=== PATIENT | female | born 1950 | race Caucasian/White ===

== ENCOUNTER → 2017-05-06 | Outpatient (CLI) | payer BC ==
[~2017-05-06] MED LIST: BLAC1TAB; CALCTAB5 PO; CHOL100010 PO; CHONCAP; CYAN100T PO; ECHI80CA; FLAX1CAP11; MAGN1TAB21; MULTTAB58 PO; [UNRECOGNIZED DRUG - OTHER]
--- NOTE | 2017-05-06 13:21 | DIAGNOSTIC IMAGING REPORT ---
RIGHT FOOT MIN 3 VIEWS CLINICAL HISTORY: Right foot pain COMPARISON: None. DISCUSSION: There is an oblique fracture involving the fifth metatarsal the junction of the middle distal one third. 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 The bones are mildly osteopenic. There is a hallux valgus deformity. Degenerative changes are present at the level the first metatarsal phalangeal joint. There is a plantar calcaneal spur. No acute fractures or dislocations are visualized. 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 Electronically signed by: Timothy Currie M.D. 05/06/2017 1:19 PM Dictated Date/Time: 05/06/2017 1:18 PM
== END | disposition home or self-care (01) ==
LOC: C.RDSM 12:55
PROVIDERS: ATTEND Physician Assistant
DX: S92.354A Nondisplaced fracture of fifth metatarsal bone, right foot, initial encounter for closed fracture (principal); X58.XXXA Exposure to other specified factors, initial encounter

== ENCOUNTER → 2017-08-12 | Outpatient (CLI) | payer BC ==
--- NOTE | 2017-08-12 14:34 | MAMMOGRAPHY REPORT ---
BILATERAL DIGITAL SCREENING MAMMOGRAM WITH CAD: 08/12/2017 CLINICAL HISTORY: Routine screening. Patient has no complaints. TECHNIQUE: Current study was also evaluated with a Computer Aided Detection (CAD) system. Bilateral CC and MLO views were obtained. COMPARISON: Comparison is made to exams dated: 08/10/2016 mammogram, 08/05/2015 mammogram, 07/27/2014 mammogram, 06/16/2013 mammogram, 06/08/2012 mammogram, and 05/29/2011 mammogram - [facility]. BREAST COMPOSITION: The tissue of both breasts is extremely dense, which lowers the sensitivity of m ammography. FINDINGS: No suspicious masses, calcifications, or areas of architectural distortion are noted in ei ther breast. There has been no significant interval change compared to prior exams. Scattered bilater al benign-appearing calcifications are not significantly changed. IMPRESSION: ACR BI-RADS CATEGORY 2: BENIGN There is no mammographic evidence of malignancy. A 1 year screening mammogram is recommended. The pa tient will receive written notification of the results. Approximately 10% of breast cancers are not detected with mammography. A negative mammographic report should not delay biopsy if a clinically suggestive mass is present. Juana Richards M.D. /:08/12/2017 07:41:34 Resident Inspector: Kylah AVENDAÑO(Suzanne)(M), [facility] letter sent: Normal 1/2 BI-RADS Code: ACR BI-RADS Category 2: Benign
== END | disposition home or self-care (01) ==
LOC: C.MAMM 07:10
PROVIDERS: ATTEND Family Medicine
DX: Z12.31 Encounter for screening mammogram for malignant neoplasm of breast (principal)

== ENCOUNTER 2023-08-19 03:55 | Inpatient (IN) ==
--- NOTE | 2023-08-19 04:42 | Emergency Department Note ---
Impression & Plan Abscess of sigmoid colon due to diverticulitis Admit to the [facility] with consultation to surgery ED Provider Note NAME: EDER KEENAN AGE: 72 SEX: Female INFORMANT: Patient ED PROVIDER(S): Lola Pham DO CHIEF COMPLAINT: Lower abdominal pain and nausea PLAN: Disposition: Admit to the [facility] MEDICAL DECISION MAKING: This is a 72-year-old female patient who presents to the emergency department with severe lower abdominal pain and nausea. The patient has a history of diverticulitis and believes that this may be causing her symptoms. She also describes urinary hesitancy. Urinalysis shows 1+ ketones but no obvious signs of urinary tract infection. Patient does have moderate leukocytosis with a white blood cell count of 14,000. On physical exam she appears mildly dehydrated. Glucose is 130. There is no evidence of ANDREA. CT scan shows moderate sigmoid diverticulitis with an intramural abscess but nothing that is drainable. Patient was originally treated with oral Tylenol for pain but then given IV Dilaudid and IV Zofran. She was treated with IV Zosyn. I discussed the case initially with the surgical PA who agreed that they would consult on this case and the patient will be admitted to internal medicine hospitalist se abarca. Care/management discussed with: The patient and her along with general surgery and the [facility] group. Triage Nursing notes: Reviewed and agree with them. Vital Signs: reviewed and unremarkable Additional History obtained from: The patient's is at the bedside Differential Diagnosis: Constipation, UTI, diverticulitis, colitis, diverticular abscess Diagnostics, independently interpreted by me: Cardiac Monitoring: Normal sinus rhythm at 93 Imaging studies: CT scan of the abdomen/pelvis: As per radiology HPI: 72 year old Female arrives for evaluation of lower abdominal pain and nausea. Patient developed lower abdominal pain and nausea that radiates through to her back since yesterday. She states that her stools are coming out looking like mickey. She has had an episode like this in the past that was diverticulitis. She thought this might be occurring so she started to take clear liquids only. She became more concerned tonight because she could not urinate and actually had to bear down to pass her urine. PAST MEDICAL HISTORY: See Below, A-fib SOCIAL HISTORY: The patient does not smoke; she lives with her , HOME MEDICATIONS: See list ALLERGIES: See list VITALS: See Below PHYSICAL EXAMINATION: HEENT: Head - normocephalic and atraumatic. Pupils are equal, round, and reactive to light. Extraocular eye muscles are intact, and sclera are anicteri c. Nose - moist nasal mucosa without discharge. Mouth - moist buccal mucosa. Oropharynx is nonerythematous and there is no tonsillar exudate or edema noted. Neck: Supple; no cervical lymphadenopathy Heart: Regular rate and rhythm. There is a normal S1 and S2 with no murmurs, clicks, or gallops appreciated. Lungs: Clear to auscultation bilaterally with no wheezes, rales, or rhonchi. Abdomen: Soft, moderate tenderness to palpation in the suprapubic region and left lower quadrant. There are no palpable pulsatile masses or hepatosplenomegaly. There is no guarding, rigidity, or rebound noted. Extremities: No evidence of cyanosis, clubbing, or edema. There are easily palpable peripheral pulses. Skin: warm and dry with good turgor and no rashes. ED treatment: IV lock, oral Tylenol, IV normal saline drip, IV Dilaudid, IV Zofran, IV Zosyn Emergency department course: The patient was evaluated in room C3. A complete history and physical was performed. An IV lock was initiated and labs were drawn as above. A urine specimen was obtained. Patient went for CT scan of the abdomen/pelvis. Patient was given oral Tylenol for pain initially. She was started on a normal saline drip for signs of dehydration. She was then agreeable to something more for pain and was given IV Dilaudid and IV Zofran. CT scan showed evidence of sigmoid diverticulitis with intramural abscess. She was then started on IV Zosyn. I discussed the case with general surgery and the [facility] Hospitalist. Past Med/Surg History Medical History Cervical dystonia Diverticular disease PAF (paroxysmal atrial fibrillation) Sensorineural hearing loss of both ears Squamous cell skin cancer, face Surgical History History of carpal tunnel release Right S/P cataract extraction Family History Mother Hearing loss Skin cancer Breast cancer Sister Hearing loss Skin cancer Father Hypertension Stroke age 57 - CVA was traumatic from a blow to the head. 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 How many Children do You have: 1 Other Information That Helps Us Care for You: No Feels Safe at Home: Yes Safety Concerns: Feels Safe At This Time Allergies Allergies Allergy/AdvReac Type Severity Reaction Status Date / Time grass pollen Allergy Verified 06/18/21 15:07 No Known Drug Allergies Allergy Verified 06/18/21 15:07 Home Meds Home Medications Medication Instructions Recorded Confirmed multivitamin (Daily Multi-Vitamin 1 tab PO DAILY 06/02/21 08/19/23 tablet) apixaban 5 mg tablet (Eliquis) 5 mg PO BID 08/19/23 08/19/23 flecainide 50 mg tablet 50 mg PO BID 08/19/23 08/19/23 metoprolol succinate 25 mg 12.5 mg PO DAILY 08/19/23 08/19/23 tablet,extended release 24 hr Results & Data (ED) Vital Signs Vital Signs - 24 hr 08/19/23 03:56 08/19/23 04:45 08/19/23 04:30 Temperature 36.5 C Temperature Source Oral Pulse Rate 93 H 84 Pulse Rate [Left Finger] Pulse Rhythm Regular Pulse Strength Normal Respiratory Rate 18 22 Respiratory Effort / Characteristics Non-Labored Spontaneous Respiratory Depth Normal Respiratory Pattern Regular Blood Pressure 112/76 121/67 Blood Pressure [Left Arm] Blood Pressure Mean 88 85 Blood Pressure Mean [Left Arm] Blood Pressure Position Sitting Pulse Oximetry 96 97 97 Oxygen Delivery Method Room Air Room Air Sepsis Recent Fever Within 48 Hours No Sepsis New/Unexplained Change in Mental Status No Sepsis Action Taken by Nursing No Action Required 08/19/23 04:55 08/19/23 05:00 08/19/23 06:00 Temperature Temperature Source Pulse Rate 74 72 72 Pulse Rate [Left Finger] Pulse Rhythm Pulse Strength Respiratory Rate 18 16 Respiratory Effort / Characteristics Respiratory Depth Respiratory Pattern Blood Pressure 106/66 106/73 Blood Pressure [Left Arm] Blood Pressure Mean 79 84 Blood Pressure Mean [Left Arm] Blood Pressure Position Pulse Oximetry 94 95 Oxygen Delivery Method Sepsis Recent Fever Within 48 Hours Sepsis New/Unexplained Change in Mental Status Sepsis Action Taken by Nursing 08/19/23 07:00 Temperature Temperature Source Pulse Rate Pulse Rate [Left Finger] 81 Pulse Rhythm Pulse Strength Respiratory Rate 24 Respiratory Effort / Characteristics Respiratory Depth Respiratory Pattern Blood Pressure Blood Pressure [Left Arm] 107/68 Blood Pressure Mean Blood Pressure Mean [Left Arm] 81 Blood Pressure Position Pulse Oximetry 91 Oxygen Delivery Method Sepsis Recent Fever Within 48 Hours Sepsis New/Unexplained Change in Mental Status Sepsis Action Taken by Nursing Laboratory Data 08/19/23 04:25 08/19/23 04:25 Lab Results 08/19/23 08/19/23 08/19/23 Range/Units 04:25 04:25 04:25 WBC 14.00 H (4.8-10.8) K/ul RBC 3.72 L (4.20-5.40) M/uL Hgb 12.0 (12.0-16.0) g/dl Hct 35.0 L (37.0-47.0) % MCV 94.1 (80.0-100.0) fL MCH 32.3 (25.0-34.0) pg MCHC 34.3 (32.0-36.0) g/dL RDW Std Deviation 43.8 (36.4-46.3) fL RDW Coeff of [place] 12.7 (11.5-14.5) % Plt Count 304 (130-400) K/uL MPV 9.0 L (9.4-12.4) fL Immature Gran % (Auto) 0.3 % Neut % (Auto) 83.1 % Lymph % (Auto) 7.8 % [place] % (Auto) 8.6 % Eos % (Auto) 0.1 % Baso % (Auto) 0.1 % Neut # (Auto) 11.63 H (1.40-6.50) K/uL Lymph # (Auto) 1.09 L (1.20-3.40) K/uL [place] # (Auto) 1.21 H (0.11-0.59) K/uL Eos # (Auto) 0.01 (0.00-0.50) K/uL Baso # (Auto) 0.02 (0.00-0.20) K/uL Immature Gran # (Auto) 0.04 (0.01-0.20) K/uL Sodium 137 (136-145) mmol/L Potassium 3.9 (3.5-5.1) mmol/L Chloride 105 (98-107) mmol/L Carbon Dioxide 25 (21-32) mmol/L Anion Gap 7 (3-11) BUN 19 (6-23) mg/dl Creatinine 0.73 (0.6-1.2) mg/dl Est Cr Clr Drug Dosing 60.3 ml/min Est GFR ( Amer) 96.7 ml/min Est GFR (Non-Af Amer) 83.4 ml/min BUN/Creatinine Ratio 26.0 H (10-20) Glucose 130 H (70-99(Fasting)) mg/dl Calcium 8.7 (8.6-10.3) mg/dl Magnesium 2.0 (1.7-2.4) mg/dl Total Bilirubin 0.6 (0.2-1.0) mg/dl AST 23 (13-39) U/L ALT 9 (7-52) U/L Alkaline Phosphatase 83 (34-104) U/L Total Protein 6.7 (6.0-8.3) gm/dl Albumin 4.0 (3.4-5.0) gm/dl Globulin 2.7 (2.5-4.0) gm/dl Albumin/Globulin Ratio 1.5 (0.9-2) Lipase 17 (11-82) U/L Urine Color Dark Yellow Urine Appearance Clear (Clear) Urine pH 7.5 (4.5-7.5) Ur Specific [place] 1.024 (1.000-1.030) Urine Protein Trace H (Negative) Urine Glucose (UA) Negative (Negative) Urine Ketones 1+ H (Negative) Urine Blood Negative (Negative) Urine Nitrite Negative (Negative) Urine Bilirubin Negative (Negative) Urine Urobilinogen Negative (Negative) Ur Leukocyte Esterase Trace H (Negative) Urine WBC (Auto) 1-5 (0-5) /hpf Urine RBC (Auto) 5-10 H (0-4) /hpf U Hyaline Cast (Auto) 1-5 (0-5) /lpf U Epithel Cells (Auto) 10-20 H (0-5) /lpf Urine Bacteria (Auto) Negative (Negative) Administered Medications Flecainide Acetate (Flecainide Acetate 100 Mg Tablet) 50 mg PO BID GUIDO Stop: 09/18/23 12:42 Last Admin: 08/19/23 13:46 Dose: 50 mg Documented By: ADOLFO Potassium Chloride/Dextrose/Sod Cl (D5nss + 20meq Kcl) 20 meq in 1,000 mls @ 100 mls/hr IV .Q10H GUIDO; Protocol Stop: 09/18/23 12:44 Last Admin: 08/19/23 13:45 Dose: 100 mls/hr Documented By: ADOLFO Heparin Sodium/Dextrose (Heparin Sodium/Dextrose) 25,000 units in 500 mls @ 19 mls/hr IV .Q24H GUIDO; Protocol Stop: 09/18/23 12:42 Last Admin: 08/19/23 15:22 Dose: Not Given Documented By: ARMIDA Famotidine 20 mg/ Syringe 5 mls @ 2.5 mls/min IV Q12 GUIDO Stop: 09/18/23 12:59 Last Admin: 08/19/23 13:45 Dose: 2.5 mls/min Documented By: ADOLFO Piperacillin Sod/Tazobactam (Sod 4.5 gm/ Dextrose) 100 mls @ 25 mls/hr IV Q8H GUIDO; Protocol Stop: 08/29/23 13:29 Last Admin: 08/19/23 14:33 Dose: 25 mls/hr Documented By: ADOLFO Discontinued Medications Acetaminophen (Acetaminophen 500 Mg Tab) 1,000 mg PO NOW STA Stop: 08/19/23 06:53 Last Admin: 08/19/23 06:55 Dose: 1,000 mg Documented By: TAWANA Heparin Sodium (Porcine) (Heparin Sod (Porcine) 1000 Unit/Ml) Confirm Administered Dose 1,000 units .ROUTE .STK-MED ONE Stop: 08/19/23 13:16 Last Admin: 08/19/23 13:28 Dose: Not Given Documented By: ADOLFO Heparin Sodium/Dextrose (Heparin 14378 Unit/500 Ml D5w) Confirm Administered Dose 25,000 units IV .STK-MED ONE Stop: 08/19/23 13:16 Last Admin: 08/19/23 14:38 Dose: 950 units Documented By: ADOLFO Co-signed By: NIK Hydromorphone HCl (Hydromorphone Inj 0.5 Mg/0.5 Ml Syr) 0.5 mg IV NOW STA Stop: 08/19/23 07:11 Last Admin: 08/19/23 07:16 Dose: 0.5 mg Documented By: ADOLFO Piperacillin Sod/Tazobactam Sod (Zosyn) 4.5 gm in 100 mls @ 200 mls/hr IV NOW ONE Stop: 08/19/23 07:34 Last Infusion: 08/19/23 07:51 Dose: 0 mls/hr Documented By: Admin: 08/19/23 07:21 Dose: 200 mls/hr Documented By: ADOLFO Sodium Chloride (Nss) 500 mls @ 125 mls/hr IV .Q4H GUIDO Stop: 09/18/23 07:14 Last Admin: 08/19/23 12:18 Dose: Not Given Documented By: Infusion: 08/19/23 11:14 Dose: 0 mls/hr Documented By: Admin: 08/19/23 07:15 Dose: 125 mls/hr Documented By: ADOLFO Lactated Ringer's (Lr) 500 mls @ 999 mls/hr IV .Q31M ONE Stop: 08/19/23 08:54 Last Infusion: 08/19/23 09:10 Dose: 0 mls/hr Documented By: Admin: 08/19/23 08:39 Dose: 999 mls/hr Documented By: ADOLFO Ioversol (Optiray 320 100ml) 100 ml IV ONCE ONE Stop: 08/19/23 05:28 Last Admin: 08/19/23 05:27 Dose: 92 ml Documented By: AIXA Ondansetron HCl (Ondansetron Inj 2 Mg/Ml 2 Ml Vial) 4 mg IV NOW STA Stop: 08/19/23 07:11 Last Admin: 08/19/23 07:19 Dose: 4 mg Documented By: ADOLFO Ondansetron HCl (Ondansetron Inj 2 Mg/Ml 2 Ml Vial) 4 mg IV NOW STA Stop: 08/19/23 08:51 Last Admin: 08/19/23 08:50 Dose: 4 mg Documented By: ADOLFO Imaging Data Radiologist's Impression: Abdomen/Pelvis CT 08/19/23 04:[address] WITH IV CONTRAST CT DOSE: 653.76 mGy.cm HISTORY: Acute left lower quadrant abdominal pain eval for diverticulitis TECHNIQUE: Multiaxial CT images of the abdomen and pelvis were performed following the IV administration of 92 cc of Optiray, A dose lowering technique was utilized adhering to the principles of ALARA. COMPARISON STUDY: MR pelvis 03/30/2023 FINDINGS: Clear lung bases with mild bibasilar atelectasis. Unremarkable spleen, pancreas and adrenal glands. The gallbladder is mildly distended. Unremarkable liver. Patent portal vein. Subcentimeter hypodensity in the superior pole left kidney, likely a cyst. No hydronephrosis. Urinary bladder wall thickening with partial distention. Anteflexed uterus. Atherosclerosis of the aorta without aneurysm. No lymphadenopathy. No small bowel obstruction. Colonic diverticulosis. There is marked wall thickening with mucosal membrane involving the mid sigmoid colon with a considerable amount of pericolonic inflammation. Ill-defined area of decreased attenuation within the wall the sigmoid colon measures up to approximately 2.6 cm on image 255. No drainable abscess or significant pneumoperitoneum. Mild colonic fecal retention. Noninflamed appendix. Unremarkable soft tissues. Degenerative changes of the spine, pelvis and hips. No acute fracture identified. IMPRESSION: 1. Colonic diverticulosis with severe acute sigmoid diverticulitis. There is a possible developing intramural abscess. No significant pneumoperitoneum or drainable abscess. 2. No bowel obstruction. 3. Additional findings as above. ACT 112: Negative or not required by law. The above report was generated using voice recognition software. It may contain grammatical, syntax or spelling errors. Electronically signed by: Fidel Mendoza M.D. 08/19/2023 6:53 AM Discharge Plan Visit Data Chief Complaint: Abdominal Pain Stated Complaint: ABD PAIN ED Provider: Lola Pham Discharge Problem: Abscess of sigmoid colon due to diverticulitis Discharge Instructions Interventions: ED Discharge Assessment Last Done: 08/19/23 12:37
[2023-08-19 04:50] LABS: Basophils # (auto) 0.02 K/uL (0.00-0.20); Basophils % (auto) 0.1 %; Eosinophils # (auto) 0.01 K/uL (0.00-0.50); Eosinophils % (auto) 0.1 %; Immature Granulocytes # (auto) 0.04 K/uL (0.01-0.20); Immature Granulocytes % (auto) 0.3 %; Lymphocytes # (auto) 1.09 K/uL (1.20-3.40); Lymphocytes % (auto) 7.8 %; Mean Corpuscular Hemoglobin 32.3 pg (25.0-34.0); Mean Corpuscular Hgb Conc 34.3 g/dL (32.0-36.0); Mean Corpuscular Volume 94.1 fL (80.0-100.0); Monocytes # (auto) 1.21 K/uL (0.11-0.59); Monocytes % (auto) 8.6 %; Neutrophils # (auto) 11.63 K/uL (1.40-6.50); Neutrophils % (auto) 83.1 %; Platelet Count 304 K/uL (130-400); RDW Coefficient of Variation 12.7 % (11.5-14.5); RDW Standard Deviation 43.8 fL (36.4-46.3); Red Blood Count 3.72 M/uL (4.20-5.40)
[2023-08-19 05:00] LABS: Appearance Urine Clear (Clear); Bacteria Urine Automated Negative (Negative); Bilirubin Urine Negative (Negative); Blood Urine Negative (Negative); Color Urine Dark Yellow; Glucose Urine UA Negative (Negative); Ketones Urine 1+ (Negative); Leukocyte Esterase Urine Trace (Negative); Nitrite Urine Negative (Negative); Specific Gravity Urine 1.024 (1.000-1.030); Urobilinogen Urine Negative (Negative); pH Urine 7.5 (4.5-7.5)
[2023-08-19 05:06] LABS: Protein Urine Trace (Negative)
[2023-08-19 05:08] LABS: Albumin Globulin Ratio 1.5 (0.9-2); Bilirubin,Total 0.6 mg/dl (0.2-1.0); Calcium 8.7 mg/dl (8.6-10.3); Creatinine Clr Calc Pharmacy 60.3 ml/min; Est GFR (African American) 96.7 ml/min; Est GFR (Non-African American) 83.4 ml/min; Globulin 2.7 gm/dl (2.5-4.0); Potassium 3.9 mmol/L (3.5-5.1); Total Protein 6.7 gm/dl (6.0-8.3)
[2023-08-19] MEDS ORDERED: OPTIRAY 320 100ml IV ONE (05:27)
[2023-08-19] MEDS ORDERED: ACETAMINOPHEN 500 MG TAB PO STA (06:52)
--- NOTE | 2023-08-19 06:55 | CT Scan Report ---
ABDOMEN AND PELVIS CT WITH IV CONTRAST CT DOSE: 653.76 mGy.cm HISTORY: Acute left lower quadrant abdominal pain eval for diverticulitis TECHNIQUE: Multiaxial CT images of the abdomen and pelvis were performed following the IV administrat ion of 92 cc of Optiray, A dose lowering technique was utilized adhering to the principles of ALARA. COMPARISON STUDY: MR pelvis 03/30/2023 FINDINGS: Clear lung bases with mild bibasilar atelectasis. Unremarkable spleen, pancreas and adrenal glands. The gallbladder is mildly distended. Unremarkable liver. Patent portal vein. Subcentimeter h ypodensity in the superior pole left kidney, likely a cyst. No hydronephrosis. Urinary bladder wall t hickening with partial distention. Anteflexed uterus. Atherosclerosis of the aorta without aneurysm. No lymphadenopathy. No small bowel obstruction. Colonic diverticulosis. There is marked wall thickening with mucosal memb grant involving the mid sigmoid colon with a considerable amount of pericolonic inflammation. Ill-defi brandy area of decreased attenuation within the wall the sigmoid colon measures up to approximately 2.6 cm on image 255. No drainable abscess or significant pneumoperitoneum. Mild colonic fecal retention. Noninflamed appendix. Unremarkable soft tissues. Degenerative changes of the spine, pelvis and hips. No acute fracture identified. IMPRESSION: 1. Colonic diverticulosis with severe acute sigmoid diverticulitis. There is a possible developing in tramural abscess. No significant pneumoperitoneum or drainable abscess. 2. No bowel obstruction. 3. Additional findings as above. ACT 112: Negative or not required by law. The above report was generated using voice recognition software. It may contain grammatical, syntax o r spelling errors. Electronically signed by: Fidel Mendoza M.D. 08/19/2023 6:53 AM
[2023-08-19] MEDS ORDERED: PIPERACILLIN/TAZOBACTAM 4.5 GM/100 ML BAG IV ONE (07:05)
[2023-08-19] MEDS ORDERED: ONDANSETRON INJ 2 MG/ML 2 ML VIAL IV STA ×2 (07:10→08:50)
[2023-08-19] MEDS ORDERED: HYDROmorphone INJ 0.5 MG/0.5 ML SYR IV STA (07:10)
[2023-08-19] MEDS: SODIUM CHLORIDE 0.9% 500 ML IV SCH ×2 (07:15→12:18)
--- NOTE | 2023-08-19 07:22 | History & Physical Report ---
Date of Service August 19, 2023 Assessment & Plan (1) Acute diverticulitis: Plan: sigmoid, with probable ~2.6cm developing diverticular abscess. no micro or macro-perforation. plan - * NPO except meds * copious basal IV fluids * will give another fluid bolus now of LR - she is volume depleted * cont IV zosyn * IV dilaudid prn * IV zofran prn * gen surg consult due to abscess but this should not require intervention as it is <4cm in size at the current time (2) Colonic diverticular abscess: Plan: ~2.6cm in size. is <4cm in size so hopefully will not require any intervention. IV zosyn. pain meds. if any clinical worsening while here low threshold to re-image. (3) PAF (paroxysmal atrial fibrillation): Plan: On chronic flecainide to maintain NSR. On chronic Eliquis + metoprolol. HOLD Eliquis. Use heparin infusion in grady of Eliquis while NPO and in the small event she would need IR intervention of the diverticular abscess. BPs mildly soft-- will hold metoprolol for now. She did mention that her SBP at baseline is typical low 100s. EKG today is stable and she is in NSR. (4) Cervical dystonia: Plan: Chronic issue, no Rx needed. She has mild tremor of arms/hands which might be contributing to the seemingly low-normal O2 sats seen in the ER. See below. (5) Lower urinary tract symptoms (LUTS): Plan: LUTS likely 2nd to #1 above. Suspect inflammation of sigmoid colon could be causing bladder irritation with subsequent LUTS. u/a findings noted. follow for ongoing symptoms. (6) DVT prophylaxis: Plan: heparin infusion (7) Cough: Plan: recent cough. borderline O2 sats in room air. check 2-view cxr, r/o pneumonia etc. incentive spirometry. History of Present Illness Chief Complaint: abdominal pain Primary Care Provider: Jacques Cooper MD 72yo female with known history of diverticulosis and PAF on Eliquis/flecainide who presents with several days of left lower abdominal pain. Patient states that sometime on Wednesday of this week she noted mild abdominal discomfort in the LLQ. The pain gradually worsened over the last 3 days. Yesterday following lunch which consisted of peanut butter on rice cakes her pain worsened in the same location. She had nausea as well. She started to restrict her diet to clear liquids yesterday afternoon when the pain worsened. No fevers but had chills especially when the pain was severe. Overnight her LLQ pain worsened significantly prompting her visit to the ER. Last BM was yesterday - "pebble" like in consistency. No BRBPR or melena. No diarrhea. Last colonoscopy about 1 year ago at [facility] - was told she had diverticular disease. Denies chronic constipation. Since arriving in the ER and receiving IV pain meds she is feeling much better. With respect to her PAF she wears a fit-bit watch and has occasional tachycardia episodes. Last episode was Wednesday when her HR went into the 130s for a few minutes then resolved without intervention. She has infrequent episodes (every few weeks or months). Allergies Allergy/AdvReac Type Severity Reaction Status Date / Time grass pollen Allergy Verified 06/18/21 15:07 No Known Drug Allergies Allergy Verified 06/18/21 15:07 Home Medications Medication Instructions Recorded Confirmed Type multivitamin (Daily Multi-Vitamin 1 tab PO DAILY 06/02/21 08/19/23 History tablet) apixaban 5 mg tablet (Eliquis) 5 mg PO BID 08/19/23 08/19/23 History flecainide 50 mg tablet 50 mg PO BID 08/19/23 08/19/23 History metoprolol succinate 25 mg 12.5 mg PO DAILY 08/19/23 08/19/23 History tablet,extended release 24 hr Past Med/Surg History Medical History Cervical dystonia Diverticular disease PAF (paroxysmal atrial fibrillation) Sensorineural hearing loss of both ears Squamous cell skin cancer, face Surgical History History of carpal tunnel release Right S/P cataract extraction Family History Mother Hearing loss Skin cancer Breast cancer Sister Hearing loss Skin cancer Father Hypertension Stroke age 57 - CVA was traumatic from a blow to the head. 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 How many Children do You have: 1 Other Information That Helps Us Care for You: No Feels Safe at Home: Yes Safety Concerns: Feels Safe At This Time Review of Systems Review of Systems: gen - no fevers but chills HENT - dry mouth today; no URI symptoms eyes - no vision loss CV - no chest pain but had palpitations on Wednesday of this week pulm - has had cough but no sputum; no dyspnea; no SHARMA GI - LLQ abd pain, emesis, nausea - mild dysuria, had to "Force" her urine out since yesterday endo - no diabetes neuro - mild headache yesterday; no paresthesias skin - chronic rashes on abdominal wall Physical Exam Physical Exam: gen - NAD, nontoxic eyes - lens implants b/l; PERRL HENT - MM dry neck - dystonia/tremor noted, no lymph nodes, no JVD heart - RRR, s1 s2, no murmur lungs - CTA b/l, no rales, normal airation abd - tender LLQ, no peritoneal signs, BS+, ND, no HSM ext - no edema, pulses 2+ b/l skin - no generalized rash, no pallor neuro - mild tremor of hands/arms, strength 5/5 x 4 exts; DTRs 2+ b/l psych - a/o x 3 Results & Data Results & Data Vital Signs (Past 12 Hours) Vital Signs Temp Pulse Resp BP Pulse Ox O2 Del Method 08/19/23 06:00 72 16 106/73 95 08/19/23 05:00 72 18 106/66 94 08/19/23 04:55 74 08/19/23 04:30 84 22 121/67 97 08/19/23 04:45 97 Room Air 08/19/23 03:56 36.5 C 93 H 18 112/76 96 Room Air Laboratory Results Laboratory Results - last 24 hr 08/19/23 08/19/23 08/19/23 04:25 04:25 04:25 WBC 14.00 H RBC 3.72 L Hgb 12.0 Hct 35.0 L MCV 94.1 MCH 32.3 MCHC 34.3 RDW Std Deviation 43.8 RDW Coeff of [place] 12.7 Plt Count 304 MPV 9.0 L Immature Gran % (Auto) 0.3 Neut % (Auto) 83.1 Lymph % (Auto) 7.8 [place] % (Auto) 8.6 Eos % (Auto) 0.1 Baso % (Auto) 0.1 Neut # (Auto) 11.63 H Lymph # (Auto) 1.09 L [place] # (Auto) 1.21 H Eos # (Auto) 0.01 Baso # (Auto) 0.02 Immature Gran # (Auto) 0.04 Sodium 137 Potassium 3.9 Chloride 105 Carbon Dioxide 25 Anion Gap 7 BUN 19 Creatinine 0.73 Est Cr Clr Drug Dosing 60.3 Est GFR ( Amer) 96.7 Est GFR (Non-Af Amer) 83.4 BUN/Creatinine Ratio 26.0 H Glucose 130 H Calcium 8.7 Magnesium Pending Total Bilirubin 0.6 AST 23 ALT 9 Alkaline Phosphatase 83 Total Protein 6.7 Albumin 4.0 Globulin 2.7 Albumin/Globulin Ratio 1.5 Lipase 17 Urine Color Dark Yellow Urine Appearance Clear Urine pH 7.5 Ur Specific [place] 1.024 Urine Protein Trace H Urine Glucose (UA) Negative Urine Ketones 1+ H Urine Blood Negative Urine Nitrite Negative Urine Bilirubin Negative Urine Urobilinogen Negative Ur Leukocyte Esterase Trace H Urine WBC (Auto) 1-5 Urine RBC (Auto) 5-10 H U Hyaline Cast (Auto) 1-5 U Epithel Cells (Auto) 10-20 H Urine Bacteria (Auto) Negative SARS-CoV-2, RNA, NAAT 08/19/23 08:28 WBC RBC Hgb Hct MCV MCH MCHC RDW Std Deviation RDW Coeff of [place] Plt Count MPV Immature Gran % (Auto) Neut % (Auto) Lymph % (Auto) [place] % (Auto) Eos % (Auto) Baso % (Auto) Neut # (Auto) Lymph # (Auto) [place] # (Auto) Eos # (Auto) Baso # (Auto) Immature Gran # (Auto) Sodium Potassium Chloride Carbon Dioxide Anion Gap BUN Creatinine Est Cr Clr Drug Dosing Est GFR ( Amer) Est GFR (Non-Af Amer) BUN/Creatinine Ratio Glucose Calcium Magnesium Total Bilirubin AST ALT Alkaline Phosphatase Total Protein Albumin Globulin Albumin/Globulin Ratio Lipase Urine Color Urine Appearance Urine pH Ur Specific [place] Urine Protein Urine Glucose (UA) Urine Ketones Urine Blood Urine Nitrite Urine Bilirubin Urine Urobilinogen Ur Leukocyte Esterase Urine WBC (Auto) Urine RBC (Auto) U Hyaline Cast (Auto) U Epithel Cells (Auto) Urine Bacteria (Auto) SARS-CoV-2, RNA, NAAT Pending Diagnostic Findings Abdomen/Pelvis CT 08/19/23 04:[address] WITH IV CONTRAST CT DOSE: 653.76 mGy.cm HISTORY: Acute left lower quadrant abdominal pain eval for diverticulitis TECHNIQUE: Multiaxial CT images of the abdomen and pelvis were performed following the IV administration of 92 cc of Optiray, A dose lowering technique was utilized adhering to the principles of ALARA. COMPARISON STUDY: MR pelvis 03/30/2023 FINDINGS: Clear lung bases with mild bibasilar atelectasis. Unremarkable spleen, pancreas and adrenal glands. The gallbladder is mildly distended. Unremarkable liver. Patent portal vein. Subcentimeter hypodensity in the superior pole left kidney, likely a cyst. No hydronephrosis. Urinary bladder wall thickening with partial distention. Anteflexed uterus. Atherosclerosis of the aorta without aneurysm. No lymphadenopathy. No small bowel obstruction. Colonic diverticulosis. There is marked wall thickening with mucosal membrane involving the mid sigmoid colon with a considerable amount of pericolonic inflammation. Ill-defined area of decreased attenuation within the wall the sigmoid colon measures up to approximately 2.6 cm on image 255. No drainable abscess or significant pneumoperitoneum. Mild colonic fecal retention. Noninflamed appendix. Unremarkable soft tissues. Degenerative changes of the spine, pelvis and hips. No acute fracture identified. IMPRESSION: 1. Colonic diverticulosis with severe acute sigmoid diverticulitis. There is a possible developing intramural abscess. No significant pneumoperitoneum or drainable abscess. 2. No bowel obstruction. 3. Additional findings as above. ACT 112: Negative or not required by law. The above report was generated using voice recognition software. It may contain grammatical, syntax or spelling errors. Electronically signed by: Fidel Mendoza M.D. 08/19/2023 6:53 AM EKG - my reading - NSR, IRBBB, no ST changes PG Care Time/CCT Total # of Minutes Spent Total Time Spent with Patient: Total time spent is greater than 50% in coordination of care (as documented) at patient's floor/unit and/or counseling patient: Coding Level of Care Code 45227 INT INP/OBS CARE 2/55MIN Diagnoses Acute diverticulitis K57.92 Colonic diverticular abscess K57.20 PAF (paroxysmal atrial fibrillation) I48.0 Cervical dystonia G24.3 Lower urinary tract symptoms (LUTS) R39.9 DVT prophylaxis Z29.9 Cough R05.9
[2023-08-19] MEDS ORDERED: LACTATED RINGER'S 500 ML IV ONE (08:24)
--- NOTE | 2023-08-19 08:49 | Surgery Consultation ---
I have seen and examined this patient. I agree with this plan. Date of Consultation August 19, 2023 Assessment & Plan (1) Acute diverticulitis: Patient is a pleasant 72yo female with PMH Afib, cervical dystonia, hearing loss, diverticulitis that presented to the [facility] ER 08/19/23 with c/o Nausea and abdominal pain, chills, without known fever that has been present since yesterday 08/18/23 around 12pm. Patient has had a prior episode of diverticulitis and reports that she thought she was having another attack so she placed herself on a liquid diet yesterday. Denies vomiting, SOB, CP. Describes pain sharp stabbing in bilateral lower quadrants worse on the left. Last BM was yesterday. Reports associated trouble with urination, having to "push" urine out while leaning forward. Takes Eliquis, flecainide, and metoprolol for Afib. On exam patient is in no acute distress, abdomen soft , non-distended, tender and painful in bilateral lower quadrants. CT reads IMPRESSION: 1. Colonic diverticulosis with severe acute sigmoid diverticulitis. There is a possible developing intramural abscess. No significant pneumoperitoneum or drainable abscess. 2. No bowel obstruction. 3. Additional findings as above. WBC 14 No drainable abscess currently, and no signs of peritonitis Recommend admit to medicine Keep NPO Continue IV fluids for hydration IV antBX IV analgesics Hold Eliquis and Convert to heparin for Afib No acute surgical intervention at this time May need further imaging if symptoms progress Will continue to follow patient History of Present Illness Reason for Consultation: Acute severe diverticulitis Requesting Physician: Dr. Pham Attending Physician: Dr. Pham History of Present Illness Patient is a pleasant 72yo female with PMH Afib, cervical dystonia, hearing loss, diverticulitis that presented to the [facility] ER 08/19/23 with c/o Nausea and abdominal pain, chills, without known fever that has been present since yesterday 08/18/23 around 12pm. Patient has had a prior episode of diverticulitis and reports that she thought she was having another attack so she placed herself on a liquid diet yesterday. Denies vomiting, SOB, CP. Describes pain sharp stabbing in bilateral lower quadrants worse on the left. Last BM was yesterday. Reports associated trouble with urination, having to "push" urine out with a sensation of burning, while having to leaning forward. Takes Eliquis, flecainide, and metoprolol for Afib. Allergies Allergy/AdvReac Type Severity Reaction Status Date / Time grass pollen Allergy Verified 06/18/21 15:07 No Known Drug Allergies Allergy Verified 06/18/21 15:07 Home Medications Medication Instructions Recorded Confirmed Type multivitamin (Daily Multi-Vitamin 1 tab PO DAILY 06/02/21 08/19/23 History tablet) apixaban 5 mg tablet (Eliquis) 5 mg PO BID 08/19/23 08/19/23 History flecainide 50 mg tablet 50 mg PO BID 08/19/23 08/19/23 History metoprolol succinate 25 mg 12.5 mg PO DAILY 08/19/23 08/19/23 History tablet,extended release 24 hr Patient History Medical History Cervical dystonia Diverticular disease PAF (paroxysmal atrial fibrillation) Sensorineural hearing loss of both ears Squamous cell skin cancer, face Surgical History History of carpal tunnel release Right S/P cataract extraction Family History Mother Hearing loss Skin cancer Breast cancer Sister Hearing loss Skin cancer Father Hypertension Stroke age 57 - CVA was traumatic from a blow to the head. 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 How many Children do You have: 1 Feels Safe at Home: Yes Review of Systems Constitutional: + chills; no fever and no sweats Respiratory: no dyspnea Cardiovascular: no chest pain (reports palpitations at home , HR 130's ) Gastrointestinal: + abdominal pain and + nausea; no bloating and no vomiting Genitourinary: + dysuria and + difficulty urinating Physical Exam Constitutional: well developed, cooperative and comfortable; no acute distress Respiratory: normal respiratory effort and able to speak in complete sentences; no respiratory distress and does not use accessory muscles Cardiovascular: Rate/Rhythm: regular rate Gastrointestinal (Abdomen): Inspection/Auscultation: abdomen normal to inspection Percussion/Palpation: + abdomen tender (pain in bilateral LLQ ) and abdomen soft; no guarding Results & Data Vital Signs (Past 12 Hours) Vital Signs Temp Pulse Pulse Resp BP BP Pulse Ox 08/19/23 08:26 81 25 H 104/65 93 08/19/23 07:00 81 24 107/68 91 08/19/23 06:00 72 16 106/73 95 08/19/23 05:00 72 18 106/66 94 08/19/23 04:55 74 08/19/23 04:30 84 22 121/67 97 08/19/23 04:45 97 08/19/23 03:56 97.7 F 93 H 18 112/76 96 O2 Del Method 08/19/23 08:26 Room Air 08/19/23 07:00 08/19/23 06:00 08/19/23 05:00 08/19/23 04:55 08/19/23 04:30 08/19/23 04:45 Room Air 08/19/23 03:56 Room Air Diagnostic Findings [place], [place] [phone] CT Scan Report Patient:EDER KEENAN Admit Date:08/19/23 MR#:[id number] Address1:[address] [facility] [facility] [facility] Acct ID:[id number] Address2: Date:1950 [facility] Zip:[place] [address] Age:72 Location:ED Sex:F Room/Bed: Att Phy: Diagnosis:ABD PAIN Mildred Phy:Jacques Cooper MD Service Date:08/19/23 Yrn Phy: Interpreting Phy:Fidel Calhoun Phy: Ordering Phy:Lola Pham D.O. cc: ~ ABDOMEN AND PELVIS CT WITH IV CONTRAST CT DOSE: 653.76 mGy.cm HISTORY: Acute left lower quadrant abdominal pain eval for diverticulitis TECHNIQUE: Multiaxial CT images of the abdomen and pelvis were performed following the IV administration of 92 cc of Optiray, A dose lowering technique was utilized adhering to the principles of ALARA. COMPARISON STUDY: MR pelvis 03/30/2023 FINDINGS: Clear lung bases with mild bibasilar atelectasis. Unremarkable spleen, pancreas and adrenal glands. The gallbladder is mildly distended. Unremarkable liver. Patent portal vein. Subcentimeter hypodensity in the superior pole left kidney, likely a cyst. No hydronephrosis. Urinary bladder wall thickening with partial distention. Anteflexed uterus. Atherosclerosis of the aorta without aneurysm. No lymphadenopathy. No small bowel obstruction. Colonic diverticulosis. There is marked wall thickening with mucosal membrane involving the mid sigmoid colon with a considerable amount of pericolonic inflammation. Ill-defined area of decreased attenuation within the wall the sigmoid colon measures up to approximately 2.6 cm on image 255. No drainable abscess or significant pneumoperitoneum. Mild colonic fecal retention. Noninflamed appendix. Unremarkable soft tissues. Degenerative changes of the spine, pelvis and hips. No acute fracture identified. IMPRESSION: 1. Colonic diverticulosis with severe acute sigmoid diverticulitis. There is a possible developing intramural abscess. No significant pneumoperitoneum or drainable abscess. 2. No bowel obstruction. 3. Additional findings as above. ACT 112: Negative or not required by law. The above report was generated using voice recognition software. It may contain grammatical, syntax or spelling errors. Electronically signed by: Fidel Mendoza M.D. 08/19/2023 6:53 AM Dictated:08/19/23645 Transcribed: 08/19/23645 PG Care Time/CCT Total # of Minutes Spent Total Time Spent with Patient: Total time spent is greater than 50% in coordination of care (as documented) at patient's floor/unit and/or counseling patient: Coding Level of Care Code 15123 OFFICE CONSULT LVL Diagnoses Acute diverticulitis K57.92
--- NOTE | 2023-08-19 09:29 | XRay Report ---
XR chest 2V PA/lateral CLINICAL HISTORY: recent cough, borderline hypoxia COMPARISON STUDY: Chest radiograph June 09, 2023. FINDINGS: Lung volumes are normal. There is no consolidation to suggest pneumonia. Linear bibasilar d ensities favor atelectasis. There is no pneumothorax or pleural effusion. Cardiac size is normal. Med iastinal contours are normal. There is no evidence for pulmonary edema. IMPRESSION: No acute cardiopulmonary findings. ACT 112: Negative or not required by law. Electronically signed by: Mike Garcia M.D. 08/19/2023 9:28 AM
[2023-08-19] MEDS ORDERED: HEPARIN SOD (PORCINE) 1000 UNIT/ML ONE (13:15)
[2023-08-19] MEDS: HEPARIN 25000 UNIT/500 ML D5W IV ONE ×2 (13:28→14:38)
[2023-08-19] MEDS: D5NSS + 20MEQ KCL 20 MEQ/1,000 ML BAG IV SCH ×2 (13:45→21:48)
[2023-08-19] MEDS: FAMOTIDINE 20 MG in SYRINGE 3 ML IV SCH ×2 (13:45→20:31)
[2023-08-19] MEDS: FLECAINIDE ACETATE 100 MG TABLET PO SCH ×2 (13:46→21:02)
[2023-08-19 14:14] LABS: Partial Thromboplastin Ratio 0.9; Partial Thromboplastin Time 26.5 Seconds (21.0-31.0)
[2023-08-19] MEDS: PIPERACILLIN/TAZOBACTAM 4.5 GM in DEXTROSE 5% MINI-B 100 ML IV SCH ×2 (14:33→20:31)
[2023-08-19] MEDS: HEPARIN SODIUM/DEXTROSE 25,000 UNITS/500 ML BAG IV SCH ×2 (15:22→21:50)
[2023-08-19] MEDS: HYDROmorphone INJ 0.5 MG/0.5 ML SYR IV PRN (20:21)
[2023-08-19] MEDS: ONDANSETRON INJ 2 MG/ML 2 ML VIAL IV PRN (20:22)
[2023-08-19 21:30] LABS: Partial Thromboplastin Ratio 1.1; Partial Thromboplastin Time 31.6 Seconds (21.0-31.0)
[2023-08-19] MEDS ORDERED: HEPARIN SOD (PORCINE) 1000 UNIT/ML IV ONE (21:42)
[2023-08-20] MEDS: ACETAMINOPHEN 325 MG TAB PO PRN ×2 (02:07→20:52)
[2023-08-20 05:11] LABS: Basophils # (auto) 0.02 K/uL (0.00-0.20); Basophils % (auto) 0.2 %; Hematocrit (blood only) 31.1 % (37.0-47.0); Hemoglobin 10.4 g/dl (12.0-16.0); Immature Granulocytes # (auto) 0.04 K/uL (0.01-0.20); Immature Granulocytes % (auto) 0.3 %; Lymphocytes # (auto) 0.95 K/uL (1.20-3.40); Lymphocytes % (auto) 8.1 %; Mean Corpuscular Hemoglobin 32.3 pg (25.0-34.0); Mean Corpuscular Hgb Conc 33.4 g/dL (32.0-36.0); Mean Corpuscular Volume 96.6 fL (80.0-100.0); Mean Platelet Volume 9.4 fL (9.4-12.4); Monocytes # (auto) 1.06 K/uL (0.11-0.59); Neutrophils # (auto) 9.67 K/uL (1.40-6.50); Neutrophils % (auto) 82.4 %; Platelet Count 242 K/uL (130-400); RDW Coefficient of Variation 12.8 % (11.5-14.5); RDW Standard Deviation 45.5 fL (36.4-46.3); Red Blood Count 3.22 M/uL (4.20-5.40); White Blood Count 11.74 K/ul (4.8-10.8)
[2023-08-20 05:27] LABS: BUN Creatinine Ratio 17.6 (10-20); C Reactive Protein 17.63 mg/dl (0-0.5); Calcium 8.3 mg/dl (8.6-10.3); Creatinine Clr Calc Pharmacy 64.8 ml/min; Est GFR (African American) 102.7 ml/min; Est GFR (Non-African American) 88.6 ml/min; Potassium 4.1 mmol/L (3.5-5.1)
[2023-08-20 05:56] LABS: Partial Thromboplastin Ratio 1.5
[2023-08-20 06:51] LABS: Partial Thromboplastin Time 42.4 Seconds (21.0-31.0)
[2023-08-20] MEDS: PIPERACILLIN/TAZOBACTAM 4.5 GM in DEXTROSE 5% MINI-B 100 ML IV SCH ×3 (07:07→20:47)
[2023-08-20] MEDS: D5NSS + 20MEQ KCL 20 MEQ/1,000 ML BAG IV SCH ×2 (07:12→16:53)
[2023-08-20] MEDS: Heparin IV Adult Wt-Based Standard *NO* Bolus Protocol IV SCH ×2 (07:51→13:32)
[2023-08-20] MEDS ORDERED: Nursing to Pharmacy Communication SCH (08:00)
[2023-08-20] MEDS: FAMOTIDINE 20 MG in SYRINGE 3 ML IV SCH ×2 (09:54→20:47)
[2023-08-20] MEDS: FLECAINIDE ACETATE 100 MG TABLET PO SCH ×2 (10:15→20:47)
[2023-08-20] MEDS: ONDANSETRON INJ 2 MG/ML 2 ML VIAL IV PRN ×2 (10:18→20:46)
[2023-08-20] MEDS: HYDROmorphone INJ 0.5 MG/0.5 ML SYR IV PRN ×2 (10:18→20:46)
--- NOTE | 2023-08-20 12:21 | Surgery Progress Note ---
I have seen the patient this AM. Her white blood cell count is continuing to improve. Still with some abdominal pain but improving. Do not advance diet today. Consider tomorrow if improved abdominal pain and normal white blood cell count Date of Service August 20, 2023 Assessment & Plan (1) Abscess of sigmoid colon due to diverticulitis: Plan: Reports that she is feeling better than yesterday Pain is generalized to LLQ had some nausea last night when she took pain medication, otherwise no N/V Reports no difficulty with urination since yesterday VSS , WBC 11 (14) Admission and Anticipated Discharge Date Admission Date: August 19, 2023 Subjective patient resting in bed Reports that she is feeling better than yesterday Pain is generalized to LLQ had some nausea last night when she took pain medication, otherwise no N/V Reports no difficulty with urination since yesterday Review of Systems Constitutional: no fever, no chills and no sweats Respiratory: no dyspnea Cardiovascular: no chest pain Gastrointestinal: + abdominal pain (LLQ); no nausea and no vomiting Genitourinary: no problem reported Physical Exam Physical Exam: alert oriented Constitutional: cooperative and comfortable; no acute distress Respiratory: normal respiratory effort and able to speak in complete sentences; no respiratory distress Cardiovascular: Rate/Rhythm: regular rate Gastrointestinal (Abdomen): Inspection/Auscultation: abdomen normal to inspection; abdomen not distended Percussion/Palpation: + abdomen tender and abdomen soft Results & Data Vital Signs (Past 12 Hours) Vital Signs Temp Pulse Resp BP Pulse Ox O2 Del Method O2 Flow Rate 08/20/23 09:54 72 16 99/64 L 96 Room Air 08/20/23 07:35 97.9 F 72 17 101/64 93 Room Air 08/20/23 01:00 98.4 F 80 16 110/60 94 Room Air 08/20/23 01:30 Nasal Cannula 2 PG Care Time/CCT Total # of Minutes Spent Total Time Spent with Patient: Total time spent is greater than 50% in coordination of care (as documented) at patient's floor/unit and/or counseling patient: Coding Level of Care Code 37443 SUB INP/OBS CARE 11/18MIN Diagnoses Abscess of sigmoid colon due to diverticulitis K57.20
[2023-08-20] MEDS: HEPARIN SODIUM/DEXTROSE 25,000 UNITS/500 ML BAG IV SCH (15:42)
--- NOTE | 2023-08-20 21:03 | Electrocardiogram Report ---
Test Reason : Blood Pressure : / mmHG Vent. Rate : 085 BPM Atrial Rate : 085 BPM P-R Int : 182 ms QRS Dur : 078 ms QT Int : 380 ms P-R-T Axes : 049 012 047 degrees QTc Int : 452 ms Normal sinus rhythm Possible Left atrial enlargement Low voltage QRS RSR' or QR pattern in V1 suggests right ventricular conduction delay When compared with ECG of 02-JAN-2016 15:43, No significant change Confirmed by Jose Hardin ([id number]) on 08/20/2023 9:03:17 PM Referred By: REFERRED SELF Confirmed By:Jose Hardin
--- NOTE | 2023-08-20 22:36 | Hospitalist Progress Note ---
Date of Service August 20, 2023 Assessment & Plan (1) Acute diverticulitis: Plan: sigmoid, with probable ~2.6cm developing diverticular abscess. no micro or macro-perforation. stable, modestly improved today but still with LLQ abd pain plan - * maintain NPO status * cont IV fluids * cont IV zosyn * IV dilaudid prn * IV zofran prn * gen surg consult and recs appreciated * repeat labs am (2) Colonic diverticular abscess: Plan: ~2.6cm in size. is <4cm in size so hopefully will not require any intervention. cont IV zosyn. cont pain meds. if any clinical worsening while here low threshold to re-image. CRP of 17.6 noted. as abscess and diverticulitis improve this value should fall. (3) PAF (paroxysmal atrial fibrillation): Plan: On chronic flecainide to maintain NSR. On chronic Eliquis + metoprolol. HOLD Eliquis. Use heparin infusion in grady of Eliquis while NPO and in the small event she would need IR intervention of the diverticular abscess. BPs mildly soft at times; thus, cont to hold metoprolol for now. She did mention that her SBP at baseline is typical low 100s. (4) Cervical dystonia: Plan: Chronic issue, no Rx needed. (5) Lower urinary tract symptoms (LUTS): Plan: LUTS likely 2nd to #1 above. Suspect inflammation of sigmoid colon could be causing bladder irritation with subsequent LUTS. u/a findings noted. symptoms have improved while here. (6) DVT prophylaxis: Plan: heparin infusion (7) Cough: Plan: recent cough. borderline O2 sats in room air at times. cxr yesterday w/o infiltrates. does have rales on exam today. follow for development of pulm edema. re-eval tomorrow. Plan family updated at bedside Admission and Anticipated Discharge Date Admission Date: August 19, 2023 Subjective pt with ongoing LLQ abd pain slightly improved only requiring pain meds requiring anti-emetics no bowel movement no vomiting denies any dyspnea Review of Systems Review of Systems: gen - no fevers or chills cv - no chest pain, no orthopnea, no palpitations pulm - no cough or dyspnea - voiding is improved Physical Exam Physical Exam: gen - NAD, nontoxic, looks better today HENT - MMM today neck - dystonia/tremor noted, no JVD heart - RRR, s1 s2, no murmur lungs - mild dry rales bases; no wheezing; no increased work of breathing abd - tender LLQ to palpation, no peritoneal signs, BS+, ND, no HSM ext - no edema, pulses 2+ b/l psych - a/o x 3 Results & Data Results & Data Vital Signs (Past 12 Hours) Vital Signs Temp Pulse Resp BP Pulse Ox O2 Del Method 08/20/23 20:25 36.9 C 80 16 109/62 93 Room Air 08/20/23 14:35 37.1 C 76 16 105/65 94 Room Air Laboratory Results Laboratory Results - last 48 hr 08/19/23 08/19/23 08/19/23 04:25 08:28 13:27 WBC RBC Hgb Hct MCV MCH MCHC RDW Std Deviation RDW Coeff of [place] Plt Count MPV Immature Gran % (Auto) Neut % (Auto) Lymph % (Auto) [place] % (Auto) Eos % (Auto) Baso % (Auto) Neut # (Auto) Lymph # (Auto) [place] # (Auto) Eos # (Auto) Baso # (Auto) Immature Gran # (Auto) APTT 26.5 PTT Ratio 0.9 Sodium Potassium Chloride Carbon Dioxide Anion Gap BUN Creatinine Est Cr Clr Drug Dosing Est GFR ( Amer) Est GFR (Non-Af Amer) BUN/Creatinine Ratio Glucose Calcium Magnesium 2.0 C-Reactive Protein SARS-CoV-2, RNA, NAAT NEGATIVE 08/19/23 08/20/23 08/20/23 20:45 04:24 04:24 WBC 11.74 H RBC 3.22 L Hgb 10.4 L Hct 31.1 L MCV 96.6 MCH 32.3 MCHC 33.4 RDW Std Deviation 45.5 RDW Coeff of [place] 12.8 Plt Count 242 MPV 9.4 Immature Gran % (Auto) 0.3 Neut % (Auto) 82.4 Lymph % (Auto) 8.1 [place] % (Auto) 9.0 Eos % (Auto) 0.0 Baso % (Auto) 0.2 Neut # (Auto) 9.67 H Lymph # (Auto) 0.95 L [place] # (Auto) 1.06 H Eos # (Auto) 0.00 Baso # (Auto) 0.02 Immature Gran # (Auto) 0.04 APTT 31.6 H PTT Ratio 1.1 Sodium 139 Potassium 4.1 Chloride 111 H Carbon Dioxide 24 Anion Gap 4 BUN 12 Creatinine 0.68 Est Cr Clr Drug Dosing 64.8 Est GFR ( Amer) 102.7 Est GFR (Non-Af Amer) 88.6 BUN/Creatinine Ratio 17.6 Glucose 151 H Calcium 8.3 L Magnesium C-Reactive Protein 17.63 H SARS-CoV-2, RNA, NAAT 08/20/23 04:24 WBC RBC Hgb Hct MCV MCH MCHC RDW Std Deviation RDW Coeff of [place] Plt Count MPV Immature Gran % (Auto) Neut % (Auto) Lymph % (Auto) [place] % (Auto) Eos % (Auto) Baso % (Auto) Neut # (Auto) Lymph # (Auto) [place] # (Auto) Eos # (Auto) Baso # (Auto) Immature Gran # (Auto) APTT 42.4 H* PTT Ratio 1.5 Sodium Potassium Chloride Carbon Dioxide Anion Gap BUN Creatinine Est Cr Clr Drug Dosing Est GFR ( Amer) Est GFR (Non-Af Amer) BUN/Creatinine Ratio Glucose Calcium Magnesium C-Reactive Protein SARS-CoV-2, RNA, NAAT PG Care Time/CCT Total # of Minutes Spent Total Time Spent with Patient: Total time spent is greater than 50% in coordination of care (as documented) at patient's floor/unit and/or counseling patient: Coding Level of Care Code 28107 SUB INP/OBS CARE Diagnoses Acute diverticulitis K57.92 Colonic diverticular abscess K57.20 PAF (paroxysmal atrial fibrillation) I48.0 Cervical dystonia G24.3 Lower urinary tract symptoms (LUTS) R39.9 DVT prophylaxis Z29.9 Cough R05.9
[2023-08-21] MEDS: D5NSS + 20MEQ KCL 20 MEQ/1,000 ML BAG IV SCH ×2 (02:57→12:27)
[2023-08-21] MEDS: ACETAMINOPHEN 325 MG TAB PO PRN ×2 (04:29→20:28)
[2023-08-21] MEDS: PIPERACILLIN/TAZOBACTAM 4.5 GM in DEXTROSE 5% MINI-B 100 ML IV SCH ×3 (04:31→20:29)
[2023-08-21 07:19] LABS: BUN Creatinine Ratio 11.4 (10-20); Calcium 8.1 mg/dl (8.6-10.3); Creatinine Clr Calc Pharmacy 75.4 ml/min; Est GFR (African American) 101.7 ml/min; Est GFR (Non-African American) 87.8 ml/min; Potassium 3.8 mmol/L (3.5-5.1)
[2023-08-21 08:00] LABS: Partial Thromboplastin Ratio 1.5
[2023-08-21 08:01] LABS: Partial Thromboplastin Time 43.5 Seconds (21.0-31.0)
[2023-08-21] MEDS: FLECAINIDE ACETATE 100 MG TABLET PO SCH ×2 (08:12→20:28)
[2023-08-21] MEDS: FAMOTIDINE 20 MG in SYRINGE 3 ML IV SCH ×2 (08:31→20:28)
--- NOTE | 2023-08-21 10:12 | Surgery Progress Note ---
Date of Service August 21, 2023 Assessment & Plan (1) Diverticular disease: Plan: Clinically much improved. She is afebrile. Minimal tenderness. I think it is okay to let her try some clear liquids today. Repeat WBC tomorrow. No acute surgical intervention indicated. (2) Acute diverticulitis: Admission and Anticipated Discharge Date Admission Date: August 19, 2023 Subjective Patient seen. Feeling much better. She denies abdominal pain. She has no nausea Physical Exam Constitutional: WD/WN, vitals as above no acute distress and not ill appearing Eyes: PERRL, conjunctivae normal, anicteric sclerae EOM intact bilaterally ENMT: external ear and nose normal, oropharynx normal Ears: no hearing impairment Neck: trachea midline, no thyromegaly Respiratory: normal respiratory effort; no respiratory distress and does not use accessory muscles Cardiovascular: Rate/Rhythm: regular rate and regular rhythm Gastrointestinal (Abdomen): Soft. Very mild suprapubic tenderness. No guarding or rebound Skin: no rashes, warm and dry Psychiatric: Orientation: alert, oriented x 3 and cooperative Results & Data Vital Signs (Past 12 Hours) Vital Signs Temp Pulse Resp BP Pulse Ox O2 Del Method 08/21/23 07:14 36.5 C 63 17 112/72 96 Room Air PG Care Time/CCT Total # of Minutes Spent Total Time Spent with Patient: Total time spent is greater than 50% in coordination of care (as documented) at patient's floor/unit and/or counseling patient: Coding Level of Care Code 90619 SUB INP/OBS CARE 2/35MIN Diagnoses Diverticular disease K57.90 Acute diverticulitis K57.92
[2023-08-21] MEDS: HEPARIN SODIUM/DEXTROSE 25,000 UNITS/500 ML BAG IV SCH (15:43)
[2023-08-22] MEDS: ACETAMINOPHEN 325 MG TAB PO PRN ×2 (04:53→19:57)
[2023-08-22] MEDS: PIPERACILLIN/TAZOBACTAM 4.5 GM in DEXTROSE 5% MINI-B 100 ML IV SCH ×3 (04:54→20:55)
--- NOTE | 2023-08-22 06:01 | Hospitalist Progress Note ---
Date of Service August 21, 2023 Assessment & Plan (1) Acute diverticulitis: Plan: sigmoid, with probable ~2.6cm developing diverticular abscess. no micro or macro-perforation. STABLE, IMPROVED clinically. plan - * agree with gen surg to start clear liquid diet * she has had copious IV fluids while here; will stop basal IV fluids (she gets about 50cc/hr between heparin drip and zosyn) * cont IV zosyn * IV dilaudid prn * IV zofran prn * gen surg assistance appreciated * repeat labs am including CRP (2) Colonic diverticular abscess: Plan: ~2.6cm in size. is <4cm in size - should not require any intervention. cont IV zosyn. cont pain meds. if any clinical worsening while here low threshold to re-image. CRP of 17.6 noted from yesterday - will repeat again in am. as abscess and diverticulitis improve this value should fall. (3) PAF (paroxysmal atrial fibrillation): Plan: On chronic flecainide to maintain NSR. On chronic Eliquis + metoprolol. HOLDING Eliquis. Use heparin infusion in grady of Eliquis in the small event she would need IR intervention of the diverticular abscess. If BPs are stable today and into tomorrow will resume low-dose metoprolol. (4) Cervical dystonia: Plan: Chronic issue, no Rx needed. (5) Lower urinary tract symptoms (LUTS): Plan: LUTS likely 2nd to #1 above. Suspect inflammation of sigmoid colon could be causing bladder irritation with subsequent LUTS. u/a findings noted. symptoms are mild - will simply follow (6) DVT prophylaxis: Plan: heparin infusion (7) Cough: Plan: recent cough. borderline O2 sats in room air at times. cxr day of admission w/o infiltrates. rales improved with walking and use of incentive spirometer thus this was likely atelectasis. serial exams. Plan family updated at bedside again today progressing nicely Admission and Anticipated Discharge Date Admission Date: August 19, 2023 Subjective patient overall feeling better abd pain in LLQ is improved has some mild RLQ discomfort and also pain in suprapubic region but mild nausea resolved no emesis passing flatus but no stools walking the hallways w/o dizziness no dyspnea at rest no SHARMA no chest pain some mild urinary dysuria still noted Review of Systems Review of Systems: gen - no fevers or chills cv - no orthopnea pulm - minimal dry cough; no SHARMA GI - see HPI Physical Exam Physical Exam: gen - NAD, again looks much better today HENT - MMM neck - dystonia/tremor noted, no JVD heart - RRR, s1 s2, no murmur lungs - dry rales bases resolved; no wheezing; no increased work of breathing; CTA b/l abd - tenderness in the LLQ MUCH better; nontender other locations; no peritoneal signs, BS+, ND, no HSM ext - no edema of ankles/feet; pulses 2+ b/l psych - a/o x 3 Results & Data Results & Data Vital Signs (Past 12 Hours) Vital Signs Temp Pulse Resp BP Pulse Ox O2 Del Method 08/21/23 14:15 36.9 C 60 16 119/70 96 Room Air 08/21/23 07:14 36.5 C 63 17 112/72 96 Room Air Laboratory Results Laboratory Results - last 24 hr 08/21/23 08/21/23 06:18 06:18 APTT 43.5 H* PTT Ratio 1.5 Sodium 142 Potassium 3.8 Chloride 112 H Carbon Dioxide 26 Anion Gap 4 BUN 8 Creatinine 0.70 Est Cr Clr Drug Dosing 75.4 Est GFR ( Amer) 101.7 Est GFR (Non-Af Amer) 87.8 BUN/Creatinine Ratio 11.4 Glucose 118 H Calcium 8.1 L PG Care Time/CCT Total # of Minutes Spent Total Time Spent with Patient: Total time spent is greater than 50% in coordination of care (as documented) at patient's floor/unit and/or counseling patient: Coding Level of Care Code 13021 SUB INP/OBS CARE 11/18MIN Diagnoses Acute diverticulitis K57.92 Colonic diverticular abscess K57.20 PAF (paroxysmal atrial fibrillation) I48.0 Cervical dystonia G24.3 Lower urinary tract symptoms (LUTS) R39.9 DVT prophylaxis Z29.9 Cough R05.9
[2023-08-22 08:14] LABS: Basophils # (auto) 0.03 K/uL (0.00-0.20); Basophils % (auto) 0.7 %; Eosinophils # (auto) 0.11 K/uL (0.00-0.50); Eosinophils % (auto) 2.4 %; Hemoglobin 10.7 g/dl (12.0-16.0); Immature Granulocytes # (auto) 0.01 K/uL (0.01-0.20); Immature Granulocytes % (auto) 0.2 %; Lymphocytes % (auto) 30.7 %; Mean Corpuscular Hemoglobin 31.8 pg (25.0-34.0); Mean Corpuscular Hgb Conc 33.4 g/dL (32.0-36.0); Mean Corpuscular Volume 95.2 fL (80.0-100.0); Mean Platelet Volume 9.1 fL (9.4-12.4); Monocytes # (auto) 0.63 K/uL (0.11-0.59); Monocytes % (auto) 13.8 %; Neutrophils # (auto) 2.38 K/uL (1.40-6.50); Neutrophils % (auto) 52.2 %; Platelet Count 241 K/uL (130-400); RDW Coefficient of Variation 12.1 % (11.5-14.5); RDW Standard Deviation 42.3 fL (36.4-46.3); Red Blood Count 3.36 M/uL (4.20-5.40); White Blood Count 4.56 K/ul (4.8-10.8)
[2023-08-22 08:26] LABS: BUN Creatinine Ratio 9.9 (10-20); C Reactive Protein 11.28 mg/dl (0-0.5); Calcium 8.8 mg/dl (8.6-10.3); Creatinine Clr Calc Pharmacy 65.2 ml/min; Est GFR (African American) 85.3 ml/min; Est GFR (Non-African American) 73.6 ml/min; Potassium 3.7 mmol/L (3.5-5.1)
[2023-08-22 08:32] LABS: Partial Thromboplastin Ratio 1.6
[2023-08-22 08:33] LABS: Partial Thromboplastin Time 45.9 Seconds (21.0-31.0)
[2023-08-22] MEDS: FAMOTIDINE 20 MG in SYRINGE 3 ML IV SCH ×2 (08:37→19:58)
[2023-08-22] MEDS: FLECAINIDE ACETATE 100 MG TABLET PO SCH ×2 (08:37→19:58)
--- NOTE | 2023-08-22 09:43 | Surgery Progress Note ---
Date of Service August 22, 2023 Assessment & Plan (1) Acute diverticulitis: Plan: Improving. I offered to advance her to full liquids but she declined at this time. She requested information about diet so I will consult to dietitian for diet prior to discharge. Admission and Anticipated Discharge Date Admission Date: August 19, 2023 Subjective Patient seen. She is feeling well. Her pain seems to have resolved. She is tolerating clear liquids without difficulty. Physical Exam Constitutional: WD/WN, vitals as above no acute distress and not ill appearing Eyes: PERRL, conjunctivae normal, anicteric sclerae EOM intact bilaterally ENMT: external ear and nose normal, oropharynx normal Ears: no hearing impairment Neck: trachea midline, no thyromegaly Respiratory: normal respiratory effort; no respiratory distress and does not use accessory muscles Cardiovascular: Rate/Rhythm: regular rate and regular rhythm Gastrointestinal (Abdomen): Soft. Very mild suprapubic tenderness. No guarding rebound or rigidity Skin: no rashes, warm and dry Psychiatric: Orientation: alert, oriented x 3 and cooperative Results & Data Vital Signs (Past 12 Hours) Vital Signs Temp Pulse Resp BP Pulse Ox O2 Del Method 08/22/23 07:24 36.5 C 60 17 132/83 97 Room Air PG Care Time/CCT Total # of Minutes Spent Total Time Spent with Patient: Total time spent is greater than 50% in coordination of care (as documented) at patient's floor/unit and/or counseling patient: Coding Level of Care Code 71848 SUB INP/OBS CARE 2/35MIN Diagnoses Acute diverticulitis K57.92
[2023-08-22] MEDS: HEPARIN SODIUM/DEXTROSE 25,000 UNITS/500 ML BAG IV SCH (17:34)
--- NOTE | 2023-08-22 20:44 | Hospitalist Progress Note ---
Date of Service August 22, 2023 Assessment & Plan (1) Acute diverticulitis: Plan: sigmoid, with probable ~2.6cm developing diverticular abscess. no micro or macro-perforation. STABLE, IMPROVED clinically and biochemically (Leukocytosis resolved; CRP 17 --> 11). plan - * agree with gen surg to advance to full liquids * cont IV zosyn * IV dilaudid prn * IV zofran prn * gen surg assistance appreciated * repeat labs am (2) Colonic diverticular abscess: Plan: ~2.6cm in size. is <4cm in size - should not require any intervention. cont IV zosyn. cont pain meds. if any clinical worsening while here low threshold to re-image. CRP of 17.6 has trended down to 11 suggesting improvement. (3) PAF (paroxysmal atrial fibrillation): Plan: On chronic flecainide to maintain NSR. On chronic Eliquis + metoprolol. HOLDING Eliquis. Use heparin infusion in grady of Eliquis in the small event she would need IR intervention of the diverticular abscess. resume low-dose metoprolol in am. if doing well overall d/c heparin tomorrow and resume Eliquis. (4) Cervical dystonia: Plan: Chronic issue, no Rx needed. (5) Lower urinary tract symptoms (LUTS): Plan: LUTS likely 2nd to #1 above. Suspect inflammation of sigmoid colon could be causing bladder irritation with subsequent LUTS. u/a findings noted. symptoms are mild - will simply follow (6) DVT prophylaxis: Plan: heparin infusion (7) Cough: Plan: cxr day of admission w/o infiltrates. o2 sats wnl. exam wnl. follow. Plan family updated at bedside again today progressing nicely Admission and Anticipated Discharge Date Admission Date: August 19, 2023 Subjective had BM this am tolerating clears no nausea no vomiting abd pain MUCH better today ambulating w/o dizziness 1 episode of reflux but just one - mid-sternal burning has such at home at times Review of Systems Review of Systems: pulm - no dyspnea or SHARMA GI - minimal lower abd pain gen - feeling better Physical Exam Physical Exam: gen - NAD, looks great HENT - MMM neck - dystonia/tremor noted, no JVD heart - RRR, s1 s2, no murmur lungs - CTA b/l, no rales or wheeze abd - tenderness in the LLQ MUCH better (nearly resolved); nontender other locations; no peritoneal signs, BS+, ND, no HSM ext - no edema of ankles/feet; pulses 2+ b/l psych - a/o x 3 Results & Data Results & Data Vital Signs (Past 12 Hours) Vital Signs Temp Pulse Resp BP Pulse Ox O2 Del Method 08/22/23 19:59 36.6 C 64 18 133/81 96 Room Air 08/22/23 14:52 36.6 C 60 16 143/81 H 98 Room Air Laboratory Results Laboratory Results - last 24 hr 08/22/23 08/22/23 08/22/23 07:48 07:48 07:48 WBC 4.56 L RBC 3.36 L Hgb 10.7 L Hct 32.0 L MCV 95.2 MCH 31.8 MCHC 33.4 RDW Std Deviation 42.3 RDW Coeff of [place] 12.1 Plt Count 241 MPV 9.1 L Immature Gran % (Auto) 0.2 Neut % (Auto) 52.2 Lymph % (Auto) 30.7 [place] % (Auto) 13.8 Eos % (Auto) 2.4 Baso % (Auto) 0.7 Neut # (Auto) 2.38 Lymph # (Auto) 1.40 [place] # (Auto) 0.63 H Eos # (Auto) 0.11 Baso # (Auto) 0.03 Immature Gran # (Auto) 0.01 APTT 45.9 H* PTT Ratio 1.6 Sodium 140 Potassium 3.7 Chloride 107 Carbon Dioxide 27 Anion Gap 6 BUN 8 Creatinine 0.81 Est Cr Clr Drug Dosing 65.2 Est GFR ( Amer) 85.3 Est GFR (Non-Af Amer) 73.6 BUN/Creatinine Ratio 9.9 L Glucose 103 H Calcium 8.8 C-Reactive Protein 11.28 H PG Care Time/CCT Total # of Minutes Spent Total Time Spent with Patient: Total time spent is greater than 50% in coordination of care (as documented) at patient's floor/unit and/or counseling patient: Coding Level of Care Code 83015 SUB INP/OBS CARE 2/35MIN Diagnoses Acute diverticulitis K57.92 Colonic diverticular abscess K57.20 PAF (paroxysmal atrial fibrillation) I48.0 Cervical dystonia G24.3 Lower urinary tract symptoms (LUTS) R39.9 DVT prophylaxis Z29.9 Cough R05.9
[2023-08-23] MEDS: PIPERACILLIN/TAZOBACTAM 4.5 GM in DEXTROSE 5% MINI-B 100 ML IV SCH ×3 (05:15→21:00)
[2023-08-23] MEDS: ACETAMINOPHEN 325 MG TAB PO PRN (05:20)
[2023-08-23 07:59] LABS: Hematocrit (blood only) 32.7 % (37.0-47.0); Hemoglobin 11.1 g/dl (12.0-16.0); Mean Corpuscular Hemoglobin 31.7 pg (25.0-34.0); Mean Corpuscular Hgb Conc 33.9 g/dL (32.0-36.0); Mean Corpuscular Volume 93.4 fL (80.0-100.0); Platelet Count 264 K/uL (130-400); RDW Coefficient of Variation 12.1 % (11.5-14.5); RDW Standard Deviation 41.6 fL (36.4-46.3); White Blood Count 3.11 K/ul (4.8-10.8)
[2023-08-23 08:20] LABS: BUN Creatinine Ratio 9.4 (10-20); Calcium 8.7 mg/dl (8.6-10.3); Creatinine Clr Calc Pharmacy 62.1 ml/min; Est GFR (African American) 80.5 ml/min; Est GFR (Non-African American) 69.4 ml/min; Potassium 3.5 mmol/L (3.5-5.1)
[2023-08-23] MEDS: METOPROLOL SUCC 25MG EXT REL TAB PO SCH (08:21)
[2023-08-23] MEDS: FLECAINIDE ACETATE 100 MG TABLET PO SCH ×2 (08:23→21:01)
[2023-08-23] MEDS: FAMOTIDINE 20 MG in SYRINGE 3 ML IV SCH ×2 (08:26→21:05)
[2023-08-23 08:30] LABS: Basophils # (auto) 0.03 K/uL (0.00-0.20); Eosinophils % (auto) 3.2 %; Immature Granulocytes # (auto) 0.01 K/uL (0.01-0.20); Immature Granulocytes % (auto) 0.3 %; Lymphocytes # (auto) 1.05 K/uL (1.20-3.40); Lymphocytes % (auto) 33.8 %; Monocytes # (auto) 0.45 K/uL (0.11-0.59); Monocytes % (auto) 14.5 %; Neutrophils # (auto) 1.47 K/uL (1.40-6.50); Neutrophils % (auto) 47.2 %
[2023-08-23 08:37] LABS: Partial Thromboplastin Ratio 1.7
[2023-08-23 09:09] LABS: Partial Thromboplastin Time 47.2 Seconds (21.0-31.0)
[2023-08-23] MEDS: APIXABAN 5 MG TABLET PO SCH ×2 (09:38→21:01)
--- NOTE | 2023-08-23 13:36 | Surgery Progress Note ---
Date of Service August 23, 2023 Assessment & Plan (1) Acute diverticulitis: Plan: Leukocytosis resolved over the weekend. Patient has remained afebrile and her abdominal pain is resolved. C/o diarrhea. Not unusual when diverticular inflammation is resolving. Continue on full liquids for today. If she tolerates, may have a low fiber diet in the am. F/U am labs Plan for discharge tomorrow if labs are acceptable and patient tolerates her breakfast. Admission and Anticipated Discharge Date Admission Date: August 19, 2023 Subjective This patient was seen and examined this am. She admits to feeling improved today. She has had some diarrhea over the weekend and lower crampy abdominal pains. She has been tolerating a clear liquid diet and was advanced to a full liquid diet. Physical Exam Constitutional: average body habitus; not ill appearing, not in distress and not diaphoretic Respiratory: normal respiratory effort; no respiratory distress, no labored breathing and does not use accessory muscles Gastrointestinal (Abdomen): Non-tender to palpation. No rebound or guarding. Non-distended. Neurologic: moves all extremities and awake; no focal motor deficits and not confused Results & Data Vital Signs (Past 12 Hours) Vital Signs Temp Pulse Resp BP Pulse Ox O2 Del Method 08/23/23 07:00 36.7 C 58 L 16 117/71 95 Room Air PG Care Time/CCT Total # of Minutes Spent Total Time Spent with Patient: Total time spent is greater than 50% in coordination of care (as documented) at patient's floor/unit and/or counseling patient: Coding [place] [address] SUB INP/OBS CARE 1/25MIN Patient Type Established History Problem Focused Exam Problem Focused Medical Decision Making Straight Forward Diagnoses Acute diverticulitis K57.92
[2023-08-23] MEDS ORDERED: HYDROCODONE/ACETAMOPHEN 5/325MG TAB PO PRN (18:59)
--- NOTE | 2023-08-23 19:02 | Hospitalist Progress Note ---
Date of Service August 23, 2023 Assessment & Plan (1) Acute diverticulitis: Plan: sigmoid, with probable ~2.6cm diverticular abscess. no micro or macro-perforation. STABLE, IMPROVED clinically and biochemically (Leukocytosis resolved; CRP 17 --> 11). plan - * cont full liquid diet; hopefully low fiber tomorrow * cont IV zosyn * stop IV dilaudid; change to norco prn * IV zofran prn * gen surg assistance much appreciated * repeat labs am including CRP at discharge change zosyn to augmentin and complete, in total, 14 days of IV/PO Rx (2) Colonic diverticular abscess: Plan: ~2.6cm in size. is <4cm in size - likely to not require any intervention. cont IV zosyn. cont pain meds prn although has not needed any in 24+ hours. if any clinical worsening while here low threshold to re-image. CRP of 17.6 has trended down to 11. repeat crp am. (3) PAF (paroxysmal atrial fibrillation): Plan: On chronic flecainide to maintain NSR. On chronic Eliquis + metoprolol. Stop heparin drip; unlikely to need any surgery on abscess at this point; resume Eliquis. Resume low-dose metoprolol. (4) Cervical dystonia: Plan: Chronic issue, no Rx needed. (5) Lower urinary tract symptoms (LUTS): Plan: LUTS likely 2nd to #1 above. Suspect inflammation of sigmoid colon could be causing bladder irritation with subsequent LUTS. u/a findings noted. symptoms have resolved. (6) DVT prophylaxis: Plan: heparin infusion - d/c such, change back to Eliquis 5mg BID. (7) Cough: Plan: cxr day of admission w/o infiltrates. o2 sats wnl. exam remains wnl. cont incentive murtaza. (8) Diarrhea: Plan: Likely due to her diverticulitis itself, but having COPIOUS stools every hour on the hour. Check a cdiff. IF negative certainly abx-associated diarrhea also contributing. Add lactinex. Plan progressing nicely - likely d/c home in the next 1-2 days will need outpatient colonoscopy in 6-8 weeks by her primary GI physician ([facility] [place]) Admission and Anticipated Discharge Date Admission Date: August 19, 2023 Subjective patient reports frequent, copious, pure water diarrhea no blood or mucous the diarrhea began overnight and has continued all day having the diarrhea every hour on the hour despite the above her abdominal pain is FULLY resolved denies any nausea/emesis drinking copious fluids no dyspnea or SHARMA walking the hallways - she states "I took 5000 steps today" Review of Systems Review of Systems: gen - no fevers or chills cv - no chest pain; no orthopnea pulm - no dyspnea GI - resolved pain - no dysuria Physical Exam Physical Exam: gen - NAD, looks great today HENT - MMM neck - dystonia/tremor (baseline), no JVD heart - RRR, s1 s2, no murmur lungs - CTA b/l, no rales or wheeze abd - soft, NT, ND, BS+, no HSM; very normal abdomen today ext - no edema of ankles/feet; pulses 2+ b/l psych - a/o x 3 Results & Data Results & Data Vital Signs (Past 12 Hours) Vital Signs Temp Pulse Resp BP Pulse Ox O2 Del Method 08/23/23 14:56 36.6 C 61 16 121/78 94 Room Air Laboratory Results Laboratory Results 08/22/23 08/22/23 08/22/23 07:48 07:48 07:48 WBC 4.56 L RBC 3.36 L Hgb 10.7 L Hct 32.0 L MCV 95.2 MCH 31.8 MCHC 33.4 RDW Std Deviation 42.3 RDW Coeff of [place] 12.1 Plt Count 241 MPV 9.1 L Immature Gran % (Auto) 0.2 Neut % (Auto) 52.2 Lymph % (Auto) 30.7 [place] % (Auto) 13.8 Eos % (Auto) 2.4 Baso % (Auto) 0.7 Neut # (Auto) 2.38 Lymph # (Auto) 1.40 [place] # (Auto) 0.63 H Eos # (Auto) 0.11 Baso # (Auto) 0.03 Immature Gran # (Auto) 0.01 APTT 45.9 H* PTT Ratio 1.6 Sodium 140 Potassium 3.7 Chloride 107 Carbon Dioxide 27 Anion Gap 6 BUN 8 Creatinine 0.81 Est Cr Clr Drug Dosing 65.2 Est GFR ( Amer) 85.3 Est GFR (Non-Af Amer) 73.6 BUN/Creatinine Ratio 9.9 L Glucose 103 H Calcium 8.8 C-Reactive Protein 11.28 H Stl C. diff Tox B Gene 08/23/23 08/23/23 08/23/23 07:08 07:08 07:08 WBC 3.11 L RBC 3.50 L Hgb 11.1 L Hct 32.7 L MCV 93.4 MCH 31.7 MCHC 33.9 RDW Std Deviation 41.6 RDW Coeff of [place] 12.1 Plt Count 264 MPV 9.0 L Immature Gran % (Auto) 0.3 Neut % (Auto) 47.2 Lymph % (Auto) 33.8 [place] % (Auto) 14.5 Eos % (Auto) 3.2 Baso % (Auto) 1.0 Neut # (Auto) 1.47 Lymph # (Auto) 1.05 L [place] # (Auto) 0.45 Eos # (Auto) 0.10 Baso # (Auto) 0.03 Immature Gran # (Auto) 0.01 APTT 47.2 H* PTT Ratio 1.7 Sodium 142 Potassium 3.5 Chloride 107 Carbon Dioxide 29 Anion Gap 6 BUN 8 Creatinine 0.85 Est Cr Clr Drug Dosing 62.1 Est GFR ( Amer) 80.5 Est GFR (Non-Af Amer) 69.4 BUN/Creatinine Ratio 9.4 L Glucose 101 H Calcium 8.7 C-Reactive Protein Stl C. diff Tox B Gene PG Care Time/CCT Total # of Minutes Spent Total Time Spent with Patient: Total time spent is greater than 50% in coordination of care (as documented) at patient's floor/unit and/or counseling patient: Coding Level of Care Code 77131 SUB INP/OBS CARE MIN Diagnoses Acute diverticulitis K57.92 Colonic diverticular abscess K57.20 PAF (paroxysmal atrial fibrillation) I48.0 Cervical dystonia G24.3 Lower urinary tract symptoms (LUTS) R39.9 DVT prophylaxis Z29.9 Cough R05.9 Diarrhea R19.7
[2023-08-23] MEDS: ADVANCED PROBIOTIC 1250 MG CAPSULE PO SCH (21:01)
[2023-08-24] MEDS: PIPERACILLIN/TAZOBACTAM 4.5 GM in DEXTROSE 5% MINI-B 100 ML IV SCH (05:15)
--- NOTE | 2023-08-24 08:14 | Surgery Progress Note ---
I have seen and examined this patient. I agree with the plan. Follow up with me as needed. Date of Service August 24, 2023 Assessment & Plan (1) Abscess of sigmoid colon due to diverticulitis: Plan: pt reports she is feeling good other than some diarrhea yesterday and last night C-Diff was negative, medicine ordered a probiotic . Denies CP, SOB, fever/chills Tolerating full liquid diet - will advance to low fiber no surgical intervention this admission , patient is stable for discharge from a general surgical standpoint and we will sign off at this time. Please call with questions or concerns Recommend patient f/u OP with GI and have another colonoscopy in 6-8 weeks Admission and Anticipated Discharge Date Admission Date: August 19, 2023 Subjective pt reports she is feeling good other than some diarrhea yesterday and last night C-Diff was negative, medicine ordered a probiotic . Denies CP, SOB, fever/chills Tolerating full liquid diet Review of Systems Constitutional: no fever, no chills and no sweats Respiratory: no dyspnea Cardiovascular: no chest pain Gastrointestinal: no abdominal pain and no vomiting Genitourinary: no problem reported Physical Exam Constitutional: cooperative and comfortable; no acute distress Respiratory: normal respiratory effort and able to speak in complete sentences; no respiratory distress Cardiovascular: Rate/Rhythm: regular rate Gastrointestinal (Abdomen): Inspection/Auscultation: abdomen normal to inspection; abdomen not distended Percussion/Palpation: abdomen soft; abdomen nontender and no guarding Results & Data Vital Signs (Past 12 Hours) Vital Signs Temp Pulse Resp BP Pulse Ox O2 Del Method 08/23/23 21:23 97.9 F 66 18 139/85 96 Room Air PG Care Time/CCT Total # of Minutes Spent Total Time Spent with Patient: Total time spent is greater than 50% in coordination of care (as documented) at patient's floor/unit and/or counseling patient: Coding Level of Care Code 99846 SUB INP/OBS CARE Diagnoses Abscess of sigmoid colon due to diverticulitis K57.20
[2023-08-24 08:22] LABS: Hematocrit (blood only) 35.6 % (37.0-47.0); Hemoglobin 12.3 g/dl (12.0-16.0); Mean Corpuscular Hemoglobin 32.1 pg (25.0-34.0); Mean Corpuscular Hgb Conc 34.6 g/dL (32.0-36.0); Mean Platelet Volume 8.8 fL (9.4-12.4); Platelet Count 314 K/uL (130-400); RDW Coefficient of Variation 12.2 % (11.5-14.5); RDW Standard Deviation 41.5 fL (36.4-46.3); Red Blood Count 3.83 M/uL (4.20-5.40); White Blood Count 3.89 K/ul (4.8-10.8)
[2023-08-24] MEDS: METOPROLOL SUCC 25MG EXT REL TAB PO SCH (08:30)
[2023-08-24] MEDS: APIXABAN 5 MG TABLET PO SCH (08:30)
[2023-08-24] MEDS: FLECAINIDE ACETATE 100 MG TABLET PO SCH (08:31)
[2023-08-24] MEDS: ADVANCED PROBIOTIC 1250 MG CAPSULE PO SCH (08:32)
[2023-08-24] MEDS: FAMOTIDINE 20 MG in SYRINGE 3 ML IV SCH (08:34)
[2023-08-24 08:51] LABS: ALC (manual) 1.32 K/uL (1.2-3.4); ANC (manual) 2.22 K/uL (1.4-6.5); Eosinophils # (manual) 0.04 K/uL (0-0.50); Eosinophils % (manual) 1 %; Large Granular Lymph # (manua 0.93 K/uL; Large Granular Lymph % (manual) 24 %; Lymphocytes # (manual) 0.39 K/uL (1.2-3.4); Lymphocytes % (manual) 10 %; Monocytes # (manual) 0.31 K/uL (0.11-0.59); Monocytes % (manual) 8 %; Neutrophils # (manual) 2.22 K/uL (1.40-6.50); Neutrophils % (manual) 57 %
[2023-08-24 08:52] LABS: BUN Creatinine Ratio 7.7 (10-20); C Reactive Protein 4.59 mg/dl (0-0.5); Calcium 9.1 mg/dl (8.6-10.3); Est GFR (African American) 74.1 ml/min; Est GFR (Non-African American) 63.9 ml/min; Magnesium 2.2 mg/dl (1.7-2.4); Potassium 3.3 mmol/L (3.5-5.1)
[2023-08-24] MEDS ORDERED: LOPERAMIDE HCL 2 MG CAP PO STA (11:25)
--- NOTE | 2023-08-24 20:14 | Discharge Summary ---
Date of Service August 24, 2023 Admission HPI Per Admitting Provider 72yo female with known history of diverticulosis and PAF on Eliquis/flecainide who presents with several days of left lower abdominal pain. Patient states that sometime on Wednesday of this week she noted mild abdominal discomfort in the LLQ. The pain gradually worsened over the last 3 days. Yesterday following lunch which consisted of peanut butter on rice cakes her pain worsened in the same location. She had nausea as well. She started to restrict her diet to clear liquids yesterday afternoon when the pain worsened. No fevers but had chills especially when the pain was severe. Overnight her LLQ pain worsened significantly prompting her visit to the ER. Last BM was yesterday - "pebble" like in consistency. No BRBPR or melena. No diarrhea. Last colonoscopy about 1 year ago at [facility] - was told she had diverticular disease. Denies chronic constipation. Since arriving in the ER and receiving IV pain meds she is feeling much better. With respect to her PAF she wears a fit-bit watch and has occasional tachycardia episodes. Last episode was Wednesday when her HR went into the 130s for a few minutes then resolved without intervention. She has infrequent episodes (every few weeks or months). Principal Diagnosis acute sigmoid diverticulitis Discharge Exam Alert, Ox4, sitting on bed, well appearing, abdomen soft/nt/nd, NABS. Discharge Data Allergies Allergy/AdvReac Type Severity Reaction Status Date / Time grass pollen Allergy Verified 06/18/21 15:07 No Known Drug Allergies Allergy Verified 06/18/21 15:07 Consultations 08/19/23 07:22 ED Decision to Admit Stat 08/19/23 12:43 Consult General Surgery Routine Ordered Studies 08/19/23 04:37 CT abd pelvis IV con only Stat Hospital Course (1) Acute diverticulitis: sigmoid, with probable ~2.6cm diverticular abscess. no micro or macro-perforation. Treated with bowel rest, IV fluids, IV pip-tazo General Surgery consulted STABLE, IMPROVED clinically and biochemically (Leukocytosis resolved; CRP 17 --> 11). Pain nearly resolved, tolerated advancement of diet. Discharged to complete total 14 days antibiotics with augmentin, option to stop after 10 days if symptoms resolved. Follow up with surgery clinic as needed. Recommended follow up with her youth services specialist for colonoscopy in 6-8 weeks. Last colonoscopy was 1.5 years ago with polyps. (2) Colonic diverticular abscess: ~2.6cm in size. is <4cm in size - did not require any intervention. (3) PAF (paroxysmal atrial fibrillation): On chronic flecainide to maintain NSR. On chronic Eliquis + metoprolol. (4) Cervical dystonia: Chronic issue, no Rx needed. (5) Lower urinary tract symptoms (LUTS): LUTS likely 2nd to #1 above. Suspect inflammation of sigmoid colon could be causing bladder irritation with subsequent LUTS. u/a findings noted. symptoms have resolved. (6) Cough: cxr day of admission w/o infiltrates. o2 sats wnl. exam remains wnl. resolved (7) Diarrhea: C. diff toxin was negative. Likely antibiotic-associated diarrhea. Recommended imodium PRN and probiotic -she prefers yogurt Total Time Total Time Spent Total Time Spent (In Minutes): 40 minutes spent coordinating care for discharge Discharge Plan Discharge Items Patient Disposition: Home - Self-Care Reason For Visit: ACUTE SIGMOID DEVERTICULITIS WITH ABSCESS Discharge Diagnosis: Acute sigmoid colon diverticulitis with small abscess Condition on Discharge: Good Activity: Resume your previous activity Non-emergency contact: Primary Care Provider Call non-emergency contact if: you have any medication questions and your symptoms worsen Follow-up/Referrals: Namrata Donahue CRNP [Nurse Practitioner] - (General Surgery - follow up if needed) Jacques Cooper MD [Primary Care Provider] - Diet: Low Fiber Addtl Attending Provider Instructions: You were treated for acute diverticultis of the sigmoid (end part) colon. There is a small abscess - small abscesses typically resolve with antibiotics alone -take the antibiotic at least until the evening of 11/4 (which is 10 days), but you can continue until it runs out if your symptoms haven't completely resolved (completes 14 days). -follow a low fiber diet until your pain completely resolves and bowel habits are returning to normal, then slowly introduce more fiber into your diet as tolerated -no special diet has been proven to prevent diverticulitis (the old-fashioned advice to avoid nuts and seeds, for example, doesn't seem to make any difference) -take a probiotic for 2-4 weeks to prevent antibiotic-associated diarrhea -follow up with a youth services specialist for a colonoscopy in 6 to 8 weeks once the diverticulitis resolves Pending Studies at Discharge: No Stand-Alone Forms: My [facility], Smoking Cessation Medications and DC Order Prescriptions: New amoxicillin-pot clavulanate 875-125 mg tablet 1 tab PO BID Qty: 17 0RF loperamide [Imodium A-D] 2 mg capsule 2 mg PO Q4H PRN (Reason: loose stool) Qty: 1 0RF Rx Instructions: administer after each loose stool until symptoms controlled; do not exceed 8 mg per 24 hrs. buy OTC Continued multivitamin [Daily Multi-Vitamin] Tablet 1 tab PO DAILY flecainide 50 mg tablet 50 mg PO BID metoprolol succinate 25 mg tablet extended release 24 hr 12.5 mg PO DAILY Eliquis 5 mg tablet 5 mg PO BID Discharge Orders: Discharge Order (Routine); Ordered 08/24/23 Ordered By: Yelena Adamson/Other Patient Handouts: Diverticulitis Dc Admission Data Admit Date/Time: 08/19/23 07:45 Attending Provider: Yelena Godoy Admit Provider: Donato Warner Primary Care Provider: Jacques Cooper Other Providers: Donato Warner ; Delores Gutierrez Other Interventions: Discharge Summary Assessment (RN) Last Done: 08/24/23 12:51 Coding Level of Care Code 38001 INP/OBS DISCH >30 MIN Diagnoses Acute diverticulitis K57.92 Colonic diverticular abscess K57.20 PAF (paroxysmal atrial fibrillation) I48.0 Cervical dystonia G24.3 Lower urinary tract symptoms (LUTS) R39.9 Cough R05.9 Diarrhea R19.7
== END 2023-08-24 13:34 | disposition home or self-care (01) | DRG 392 ==
LOC: ED 03:55 → SUATTDRO 07:45 → EDINP 07:45 → 3W 08-20 01:30